=== PATIENT | female | born 1970 | race Hispanic/Latino ===

== ENCOUNTER 2017-04-16 23:29 | Emergency (ER) | payer SELFPAY ==
[2017-04-17 00:38] LABS: BASOPHILS % (AUTO) 0.4 % (0.0-5.0); EOSINOPHILS % (AUTO) 1.9 % (0.0-8.0); HEMATOCRIT 34.5 % (36-48); LYMPHOCYTES % (AUTO) 15.8 % (21.0-51.0); MEAN CORPUSCULAR HEMOGLOBIN 27.2 pg (27.0-33.0); MEAN CORPUSCULAR HGB CONC 33.6 g/dL (32.0-36.0); MONOCYTES % (AUTO) 4.2 % (3.0-13.0); NEUTROPHILS % (AUTO) 77.7 % (40.0-77.0); PLATELET COUNT (AUTO) 300 K/uL (130-400); RED BLOOD CELL COUNT(AUTO) 4.26 MIL/uL (4.00-5.50); RED CELL DISTRIBUTION WIDTH 13.9 % (11.0-15.5); WHITE BLOOD COUNT (AUTO) 8.9 K/uL (4.8-10.8)
[2017-04-17 00:47] LABS: CREATININE 0.6 mg/dL (0.5-1.5); POTASSIUM 3.6 mmol/L (3.5-5.1)
[2017-04-17 00:51] LABS: ALBUMIN 3.4 g/dL (3.5-5.0); BILIRUBIN,TOTAL 0.5 mg/dL (0.2-1.0); TOTAL PROTEIN, SERUM 7.4 g/dL (6.0-8.3)
[2017-04-17] MEDS ORDERED: SODIUM CHLORIDE 0.9% 1000ML 2,000 ML IV ONE (00:51)
[2017-04-17] MEDS ORDERED: DICYCLOMINE HCL 10 MG/ML 2ML AMP IM ONE (00:52)
[2017-04-17] MEDS ORDERED: ONDANSETRON HCL 4 MG/2 ML VIAL ONE (01:01)
== END 2017-04-17 05:45 | disposition home or self-care (01) ==
LOC: EDH 23:29
DX: R10.13 Epigastric pain (principal); R19.7 Diarrhea, unspecified; R11.0 Nausea; E78.5 Hyperlipidemia, unspecified; I10 Essential (primary) hypertension; Z79.899 Other long term (current) drug therapy; Z98.890 Other specified postprocedural states
CPT/HCPCS: 36415; 80053; 82150; 83690; 85025; 87046; 87205; 93005; 96361; 96372; 96374; 99285; J0500; J2405; J7030

== ENCOUNTER 2021-06-18 11:04 | Emergency (ER) | payer OTHER ==
[~2021-06-18] VITALS: Ht 152.4 cm; Wt 68.0 kg
[2021-06-18] MEDS ORDERED: NAPR-1196 PO (12:46)
[2021-06-18 13:26] VITALS: BP 135/74
== END 2021-06-18 13:27 | disposition home or self-care (01) ==
LOC: EDH 11:04
DX: S09.93XA Unspecified injury of face, initial encounter (principal); E11.9 Type 2 diabetes mellitus without complications; I10 Essential (primary) hypertension; W18.39XA Other fall on same level, initial encounter; Y93.89 Activity, other specified; Y92.89 Other specified places as the place of occurrence of the external cause; Y99.8 Other external cause status
CPT/HCPCS: 70150

== ENCOUNTER 2021-10-08 17:06 | Emergency (ER) | payer OTHER, SELFPAY ==
[~2021-10-08] VITALS: Ht 152.4 cm; Wt 68.9 kg
[~2021-10-08 17:06] MED LIST: NAPR-1196 PO
[2021-10-08 17:11] VITALS: BP 143/73
[2021-10-08] MEDS ORDERED: ACET-66 PO (18:31)
[2021-10-08] MEDS: ACETAMINOPHEN 500 MG TABLET PO ONE (18:42)
[2021-10-08] MEDS: ACETAMINOPHEN 500 MG TABLET ONE (18:42)
== END 2021-10-08 19:04 | disposition home or self-care (01) ==
LOC: EDH 17:06
DX: M25.561 Pain in right knee (principal); E11.9 Type 2 diabetes mellitus without complications; I10 Essential (primary) hypertension; Z79.1 Long term (current) use of non-steroidal anti-inflammatories (NSAID); Z90.721 Acquired absence of ovaries, unilateral
CPT/HCPCS: 73562

== ENCOUNTER 2022-12-04 21:18 | Emergency (ER) | payer BC ==
[~2022-12-04] VITALS: Ht 165.1 cm; Wt 73.3 kg
[~2022-12-04 21:18] MED LIST changes: +ACET-66 PO
[2022-12-04] MEDS ORDERED: 0.9%NACL 1000ML 1,000 ML IV STA (21:34)
[2022-12-04 21:48] LABS: APPEARANCE,URINE CLEAR (CLEAR); BILIRUBIN,URINE NEGATIVE (NEGATIVE); COLOR,URINE LIGHT-YELLOW (YELLOW); GLUCOSE, URINE (UA) NEGATIVE (NEGATIVE); KETONES,URINE NEGATIVE (NEGATIVE); LEUKOCYTE ESTERASE ,URINE 25 Leu/uL (NEGATIVE); NITRATE,URINE NEGATIVE (NEGATIVE); PROTEIN,URINE 20 mg/dL (NEGATIVE); UROBILINOGEN,URINE 0.2 mg/dL (0.2-1.0)
[2022-12-04 21:49] LABS: ADD UA MICROSCOPIC YES
[2022-12-04 21:50] LABS: BACTERIA,URINE RARE /HPF (None Seen); MUCUS,URINE RARE LPF (None Seen); OTHER CASTS, URINE 1 /LPF (None Seen); SQUAMOUS EPITHELIAL CELL,UR FEW /HPF (0-2)
[2022-12-04 21:51] LABS: HCG,QUALITATIVE URINE NEGATIVE (NEGATIVE)
[2022-12-04] MEDS ORDERED: METOCLOPRAMIDE 10 MG/2 ML VIAL IVP ONE (22:00)
[2022-12-04] MEDS ORDERED: LIDOCAINE HCL 2% VISCOUS 15 ML UDCUP PO ONE (22:00)
[2022-12-04] MEDS ORDERED: MAG/ALUM/SIMETH 30 ML UDCUP PO ONE (22:00)
[2022-12-04] MEDS ORDERED: FAMOTIDINE 20MG VIAL IV ONE (22:00)
[2022-12-04 22:09] LABS: BASOPHILS # (AUTO) 0.04 K/uL (0.00-0.20); BASOPHILS % (AUTO) 0.3 % (0.0-5.0); EOSINOPHILS # (AUTO) 0.18 K/uL (0.00-0.70); EOSINOPHILS % (AUTO) 1.5 % (0.0-8.0); HEMATOCRIT 38.4 % (36-48); IMMATURE GRANULOCYTE ABSOLUTE 0.04 K/uL (0-1); LYMPHOCYTES # (AUTO) 4.2 K/uL (1.0-4.8); LYMPHOCYTES % (AUTO) 35.1 % (21.0-51.0); MEAN CORPUSCULAR HEMOGLOBIN 27.7 pg (27.0-33.0); MEAN CORPUSCULAR HGB CONC 32.3 g/dL (32.0-36.0); MEAN CORPUSCULAR VOLUME 85.9 fL (79-99); MONOCYTES # (AUTO) 0.7 K/uL (0.1-1.0); NEUTROPHILS # (AUTO) 6.9 K/uL (1.8-7.7); NEUTROPHILS % (AUTO) 56.8 % (40.0-77.0); PLATELET COUNT (AUTO) 328 K/uL (130-400); RED BLOOD CELL COUNT(AUTO) 4.47 MIL/uL (4.00-5.50); RED CELL DISTRIBUTION WIDTH 13.4 % (11.0-15.5); WHITE BLOOD COUNT (AUTO) 12.1 K/uL (4.8-10.8)
[2022-12-04 22:30] LABS: CREATININE 0.7 mg/dL (0.5-1.5); POTASSIUM 4.1 mmol/L (3.5-5.1)
[2022-12-04 22:33] LABS: ALBUMIN 3.6 g/dL (3.5-5.0); BILIRUBIN,TOTAL 0.2 mg/dL (0.2-1.0); TOTAL PROTEIN, SERUM 7.6 g/dL (6.0-8.3)
[2022-12-04] MEDS ORDERED: CEPH500B PO (23:43)
[2022-12-04] MEDS ORDERED: PANT40TA PO (23:43)
[2022-12-04] MEDS ORDERED: METO-296 PO (23:43)
[2022-12-04 23:51] VITALS: BP 126/78; PULSE 84; RESP 16; O2SAT 98
[2022-12-05] MEDS ORDERED: CEFTRIAXONE 2GM VIAL IVPB ONE
== END 2022-12-05 00:44 | disposition home or self-care (01) ==
LOC: EDH 21:18
DX: K21.9 Gastro-esophageal reflux disease without esophagitis (principal); N39.0 Urinary tract infection, site not specified; E11.9 Type 2 diabetes mellitus without complications; E78.00 Pure hypercholesterolemia, unspecified; I10 Essential (primary) hypertension
CPT/HCPCS: 99284; 96365; 96375; 82550; 84484; 80053; 83690; 85025; 81001; 81025; 36415; 93005; J3490; J7030; J0696; J2765

== ENCOUNTER 2023-06-20 02:31 | Emergency (ER) | payer BC ==
[~2023-06-20] VITALS: Ht 152.4 cm; Wt 70.8 kg
[~2023-06-20 02:31] MED LIST changes: +CEPH500B PO; +METO-296 PO; +PANT40TA PO
[2023-06-20 03:40] LABS: ADD UA MICROSCOPIC YES; APPEARANCE,URINE CLEAR (CLEAR); BILIRUBIN,URINE NEGATIVE (NEGATIVE); COLOR,URINE LIGHT-YELLOW (YELLOW); GLUCOSE, URINE (UA) NEGATIVE (NEGATIVE); KETONES,URINE NEGATIVE (NEGATIVE); LEUKOCYTE ESTERASE ,URINE NEGATIVE Leu/uL (NEGATIVE); NITRATE,URINE NEGATIVE (NEGATIVE); OCCULT BLOOD,URINE SMALL (NEGATIVE); PROTEIN,URINE 10 mg/dL (NEGATIVE); UROBILINOGEN,URINE 0.2 mg/dL (0.2-1.0)
[2023-06-20 03:41] LABS: MUCUS,URINE RARE LPF (None Seen); SQUAMOUS EPITHELIAL CELL,UR RARE /HPF (0-2)
[2023-06-20 03:41] LABS: BASOPHILS # (AUTO) 0.03 K/uL (0.00-0.20); BASOPHILS % (AUTO) 0.2 % (0.0-5.0); EOSINOPHILS # (AUTO) 0.14 K/uL (0.00-0.70); EOSINOPHILS % (AUTO) 1.1 % (0.0-8.0); IMMATURE GRANULOCYTE ABSOLUTE 0.05 K/uL (0-1); LYMPHOCYTES # (AUTO) 1.6 K/uL (1.0-4.8); LYMPHOCYTES % (AUTO) 12.2 % (21.0-51.0); MEAN CORPUSCULAR HEMOGLOBIN 27.5 pg (27.0-33.0); MEAN CORPUSCULAR VOLUME 83.5 fL (79-99); MONOCYTES # (AUTO) 0.8 K/uL (0.1-1.0); MONOCYTES % (AUTO) 5.9 % (3.0-13.0); NEUTROPHILS # (AUTO) 10.4 K/uL (1.8-7.7); NEUTROPHILS % (AUTO) 80.2 % (40.0-77.0); PLATELET COUNT (AUTO) 293 K/uL (130-400); RED BLOOD CELL COUNT(AUTO) 4.43 MIL/uL (4.00-5.50); RED CELL DISTRIBUTION WIDTH 13.4 % (11.0-15.5)
[2023-06-20] MEDS: MAG/ALUM/SIMETH 30 ML UDCUP PO ONE (04:00)
[2023-06-20 04:01] LABS: CREATININE 0.6 mg/dL (0.5-1.0); POTASSIUM 4.5 mmol/L (3.5-5.1)
[2023-06-20] MEDS: LIDOCAINE HCL 2% VISCOUS 15 ML UDCUP PO ONE (04:01)
[2023-06-20 04:06] LABS: ALBUMIN 3.4 g/dL (3.5-5.0); BILIRUBIN,TOTAL 0.4 mg/dL (0.2-1.0); TOTAL PROTEIN, SERUM 7.6 g/dL (6.0-8.3)
[2023-06-20] MEDS ORDERED: PANT40TA PO (04:48)
[2023-06-20] MEDS ORDERED: MAG-55 PO (04:48)
[2023-06-20 05:03] VITALS: BP 113/61; PULSE 72; RESP 18; O2SAT 99
== END 2023-06-20 05:05 | disposition home or self-care (01) ==
LOC: EDH 02:31
DX: K29.70 Gastritis, unspecified, without bleeding (principal); E11.9 Type 2 diabetes mellitus without complications; E78.00 Pure hypercholesterolemia, unspecified; I10 Essential (primary) hypertension; Z79.899 Other long term (current) drug therapy
CPT/HCPCS: 36415; 80053; 81001; 83690; 84484; 85025

== ENCOUNTER 2024-01-11 16:17 | Emergency (ER) | payer BC ==
[~2024-01-11] VITALS: Ht 152.4 cm; Wt 74.8 kg
[~2024-01-11 16:17] MED LIST changes: -CEPH500B PO; +MAG-55 PO; -NAPR-1196 PO
[2024-01-11 17:23] LABS: BASOPHILS # (AUTO) 0.03 K/uL (0.00-0.20); BASOPHILS % (AUTO) 0.2 % (0.0-5.0); EOSINOPHILS # (AUTO) 0.08 K/uL (0.00-0.70); EOSINOPHILS % (AUTO) 0.6 % (0.0-8.0); HEMATOCRIT 38.7 % (36-48); IMMATURE GRANULOCYTE ABSOLUTE 0.04 K/uL (0-1); LYMPHOCYTES # (AUTO) 3.4 K/uL (1.0-4.8); LYMPHOCYTES % (AUTO) 25.8 % (21.0-51.0); MEAN CORPUSCULAR HEMOGLOBIN 28.1 pg (27.0-33.0); MEAN CORPUSCULAR HGB CONC 32.8 g/dL (32.0-36.0); MEAN CORPUSCULAR VOLUME 85.6 fL (79-99); MONOCYTES # (AUTO) 0.5 K/uL (0.1-1.0); MONOCYTES % (AUTO) 3.8 % (3.0-13.0); NEUTROPHILS % (AUTO) 69.3 % (40.0-77.0); PLATELET COUNT (AUTO) 328 K/uL (130-400); RED BLOOD CELL COUNT(AUTO) 4.52 MIL/uL (4.00-5.50); RED CELL DISTRIBUTION WIDTH 13.5 % (11.0-15.5)
[2024-01-11 17:32] LABS: CARBON DIOXIDE 27 mmol/L (21-32); CHLORIDE 105 mmol/L (101-111); CREATININE 0.5 mg/dL (0.5-1.0); GLOMERULAR FILTR. RATE CALC 111 mL/min (>90); GLUCOSE,RANDOM 102 mg/dL (70-105); POTASSIUM 3.8 mmol/L (3.5-5.1); SODIUM SERUM 144 mmol/L (136-145); UREA NITROGEN, BLOOD 11 mg/dL (7-18)
[2024-01-11 17:41] LABS: ALANINE AMINOTRANSFERASE 35 U/L (12-78); ALBUMIN 3.8 g/dL (3.5-5.0); ASPARTATE AMINOTRANSFERASE 25 U/L (10-37); BILIRUBIN,DIRECT < 0.1 mg/dL (0.0-0.3); BILIRUBIN,TOTAL 0.1 mg/dL (0.2-1.0); TOTAL PROTEIN, SERUM 8.2 g/dL (6.0-8.3)
[2024-01-11 17:57] VITALS: BP 152/84; PULSE 74; RESP 20; TEMP 98; O2SAT 97
[2024-01-11] MEDS: 0.9%NACL 1000ML 1,000 ML IV ONE (18:12)
[2024-01-11] MEDS: MAG/ALUM/SIMETH 30 ML UDCUP PO ONE (18:12)
[2024-01-11] MEDS: FAMOTIDINE 20MG VIAL IV ONE (18:12)
--- NOTE | 2024-01-11 18:25 | ERN ---
General Chief Complaint: Abdominal Pain Stated Complaint: ABDOMINAL PAIN Time Seen by MD: 16:57 Time Seen by Midlevel: 16:57 Source: patient History of Present Illness Initial Comments Patient is a 53-year-old female presenting to the emergency department with sudden onset of abdominal pain that started approximately 40 minutes prior to arrival. Patient reports similar episodes in the past and has been told it was gastritis. She saw her primary care doctor for this who referred her to a lean specialist who scheduled her for colonoscopy/endoscopy. She had to get cardiology clearance and she just received her clearance earlier this week. She is now pending an appointment for her endoscopy/colonoscopy. She specifically denies any diarrhea, bloody stools, hematemesis, fever, chills, or any other symptoms at this time. Allergies: Coded Allergies: No Known Allergies (Unverified Allergy, Unknown, 06/18/21) Home Meds Active Scripts Pantoprazole Sodium (Protonix) 40 Mg Tablet.dr, 40 MG PO DAILYBKFST, #30 TAB Prov:WAQAR SANTIAGO MD 06/20/23 Mag Hydrox/Al Hydrox/Simeth (Maalox Maximum Strength Susp) 400 Mg-400 Mg-40 Mg/5 Ml Oral.susp, 30 ML PO TIDAC, #300 ML Prov:WAQAR SANTIAGO MD 06/20/23 Metoclopramide HCl (Reglan) 10 Mg Tablet, 10 MG PO QID, #120 TAB 2 Refills Prov:SHA PULIDO Sr., MD 12/04/22 Acetaminophen (Tylenol) 500 Mg Tab, 500 MG PO Q4PRN, #30 TAB Prov:MUNIR KAY 10/08/21 Past Medical History Past Medical History: Arthritis, Diabetes-Type II, High Cholesterol, Hypertension, Other Medical History Other: HX OF GASTRITIS Past Surgical History: Unknown Surgical History Other: OVARIAN CYST REMOVAL LEFT Family History Family History: Negative Social History Social History: Negative, Lives with family ROS Dictation CONSTITUTIONAL: Negative except for HPI HEAD/FACE: Negative except for HPI EENT: Negative except for HPI RESPIRATORY: Negative except for HPI GASTROINTESTINAL/ABDOMINAL: Negative except for HPI GENITOURINARY: Negative except for HPI MUSCULOSKELETAL: Negative except for HPI INTEGUMENTARY: Negative except for HPI NEUROLOGICAL/PSYCH: Negative except for HPI HEMATOLOGIC/LYMPHATIC: Negative except for HPI All Systems Negative, Except as noted above. 13 point review of systems assessed and all negative except for above. Physical Exam Physical Exam Dictation Vital Signs reviewed General Appearance: Alert, oriented x 3, no acute distress, well developed, nourished. Head and Face: non-traumatic. Eyes: PERRL, pink conjunctivas, eyelid no trauma, anterior chamber with arcus senilis. Ears: Pinnas intact and no signs of trauma or erythema ear canals clear and no discharge TM no erythema Nose: No discharge, no bleeding. Oropharynx: Mouth normal, tongue pink, pharynx clear,no erythema, tonsils no exudates, no abscesses noted, mucous membrane moist Neck: Supple, non-tender, no thyromegaly, no masses, no JVD, no bruits Breast:Deferred Chest:No tenderness, no crepitus, no paradoxical movement, no retractions Lungs:Clear, well-ventilated, symmetric, no rales, no wheezing, no rhonchi, no stridor, good breath sounds bilaterally Heart: Regular rate, regular rhythm, no murmur, no gallops Vascular: no peripheral edema, Abdomen: Soft, positive bowel sounds, nondistended, no guarding, nontender, no rebound, no masses no hepatomegaly, no splenomegaly, no Dailey's sign, no hernias. Rectal: Deferred Genital: Deferred Neurological: Normal speech, motor function intact, sensory function intact Musculoskeletal: Neck nontender, full range of motion, back nontender, full range of motion, Extremities: nontender, full range of motion Skin: Color pink, dry, no turgor, no rash, no lacerations, no abrasions, no contusions. Lymphatic: Deferred Results Laboratory and Microbiology Lab and Micro Result Laboratory Tests Test 01/11/24 16:42 White Blood Count 13.0 K/uL (4.8-10.8) H Red Blood Count 4.52 MIL/uL (4.00-5.50) Hemoglobin 12.7 g/dL (12.0-16.0) Hematocrit 38.7 % (36-48) Mean Corpuscular Volume 85.6 fL (79-99) Mean Corpuscular Hemoglobin 28.1 pg (27.0-33.0) Mean Corpuscular Hemoglobin Concent 32.8 g/dL (32.0-36.0) Red Cell Distribution Width 13.5 % (11.0-15.5) Platelet Count 328 K/uL (130-400) Mean Platelet Volume 10.2 fL (7.5-10.5) Immature Granulocyte % (Auto) 0.3 % (0-1) Neutrophils (%) (Auto) 69.3 % (40.0-77.0) Lymphocytes (%) (Auto) 25.8 % (21.0-51.0) Monocytes (%) (Auto) 3.8 % (3.0-13.0) Eosinophils (%) (Auto) 0.6 % (0.0-8.0) Basophils (%) (Auto) 0.2 % (0.0-5.0) Neutrophils # (Auto) 9.0 K/uL (1.8-7.7) H Lymphocytes # (Auto) 3.4 K/uL (1.0-4.8) Monocytes # (Auto) 0.5 K/uL (0.1-1.0) Eosinophils # (Auto) 0.08 K/uL (0.00-0.70) Basophils # (Auto) 0.03 K/uL (0.00-0.20) Absolute Immature Granulocyte (auto 0.04 K/uL (0-1) Nucleated Red Blood Cells 0.0 % (0.0-0.19) Sodium Level 144 mmol/L (136-145) Potassium Level 3.8 mmol/L (3.5-5.1) Chloride Level 105 mmol/L (101-111) Carbon Dioxide Level 27 mmol/L (21-32) Blood Urea Nitrogen 11 mg/dL (7-18) Creatinine 0.5 mg/dL (0.5-1.0) Glomerular Filtration Rate Calc 111 mL/min (>90) Random Glucose 102 mg/dL (70-105) Total Calcium 8.8 mg/dL (8.5-10.1) Total Bilirubin 0.1 mg/dL (0.2-1.0) L Direct Bilirubin < 0.1 mg/dL (0.0-0.3) Aspartate Amino Transf (AST/SGOT) 25 U/L (10-37) Alanine Aminotransferase (ALT/SGPT) 35 U/L (12-78) Alkaline Phosphatase 81 U/L (50-136) Troponin I High Sensitivity < 4 ng/L (4-50) L Total Protein 8.2 g/dL (6.0-8.3) Albumin 3.8 g/dL (3.5-5.0) Lipase 31 U/L (16-77) Labs Reviewed?: Yes MDM MDM: Patient is a 53-year-old female presenting to the emergency department with sudden onset of abdominal pain that started approximately 40 minutes prior to arrival. Patient reports similar episodes in the past and has been told it was gastritis. She saw her primary care doctor for this who referred her to a lean specialist who scheduled her for colonoscopy/endoscopy. She had to get cardiology clearance and she just received her clearance earlier this week. She is now pending an appointment for her endoscopy/colonoscopy. She specifically denies any diarrhea, bloody stools, hematemesis, fever, chills, or any other symptoms at this time. On physical examination patient is in no acute distress. There is some mild midepigastric abdominal tenderness with no rebound or guarding. Patient is afebrile and nontoxic appearing. She does report having three episodes of emesis prior to arrival however this is subjective. Her CBC shows slight leukocytosis however the remainder of her blood work is unremarkable. The leukocytosis could be a stress reaction to her episodes of vomiting. She was given IV fluids Zofran and Pepcid and she states her symptoms have completely resolved. I did offer a CT scan for further evaluation however patient refuses at this time stating that she does not want to be exposed to all that radiation if she does not need it. She was advised to keep her appointment with her primary care doctor and lean specialist for outpatient endoscopy/colonoscopy. If she develops any new or worsening symptoms she was advised to report to the ER for further evaluation. Differential diagnosis: Gastritis, gastroenteritis, cholecystitis, pancreatitis There are no social concerns with this patient. Prescription drug management Prescriptions will include: Zofran, Pepcid Medical management and examination interpretation discussions were had by me with other qualified healthcare professionals as indicated for the patient's care. ED Course Orders Procedure Category Date Status Time Cbc With Differential LAB 01/11/24 Complete 16:31 Troponin I High LAB 01/11/24 Complete Sensitivity 16:31 Urinalysis Profile LAB 01/11/24 Logged 16:31 Lipase LAB 01/11/24 Complete 16:31 Basic Metabolic Panel LAB 01/11/24 Complete 16:31 Hepatic Function Panel LAB 01/11/24 Complete 16:31 Famotidine 20mg Vial PHA 01/11/24 Complete (Pepcid 20mg Vial) 17:00 Mag/Alum/Simeth 30ml PHA 01/11/24 Complete (Maalox Plus 30ml) 17:00 0.9%Nacl 1000ml (Ns PHA 01/11/24 Complete 1000ml) 17:00 Current Medications Medications (Trade) Dose Ordered Sig/Yaw Route PRN Reason Start Time Stop Time Status Last Admin Dose Admin Al Hydroxide/Mg Hydroxide (MAALox PLUS 30ML) 30 ml ONCE ONCE PO 01/11/24 17:00 01/11/24 17:01 DC 01/11/24 18:12 Famotidine (Pepcid 20mg Vial) 20 mg ONCE ONCE IV 01/11/24 17:00 01/11/24 17:01 DC 01/11/24 18:12 Sodium Chloride 1,000 ml @ 0 mls/hr ONCE ONCE IV 01/11/24 17:00 01/11/24 17:01 DC 01/11/24 18:12 Vital Signs Date Time Temp Pulse Resp B/P (MAP) Pulse Ox O2 Delivery O2 Flow Rate FiO2 01/11/24 17:57 98.1 74 20 152/84 97 Room Air* 0 21 01/11/24 16:25 99.0 74 20 152/84 97 Room Air DX & DISP Disposition: Discharge Departure Impression: Primary Impression: Gastritis Condition: Stable Scripts Famotidine (Pepcid) 20 Mg Tablet 1 TAB PO DAILY for 7 Days, #7 TAB 0 Refills Prov: ERWIN HANSON 01/11/24 Ondansetron (Ondansetron Odt) 4 Mg Tab.rapdis 4 MG PO BID for 7 Days, #14 TAB Prov: ERWIN HANSON 01/11/24 Additional Instructions: Your blood work today is stable. Please follow up with your primary care doctor in 2-3 days for repeat evaluation . Please keep appointment with your lean specialist for endoscopy/colonoscopy. If your symptoms do not improve or get worse please return to the emergency department for repeat evaluation. Referrals: ELIGIO CANTU DO (PCP) Time of Disposition: 19:14 I have reviewed the case, and I agree with, Diagnosis and Plan I performed the substantive portion of the visit. I have reviewed and personally made and approve the management plan that is documented in the note by myself or the INDIO. I acknowledge for responsibility for the patient's management plan. ERWIN HANSON Jan 11, 2024 18:25
[2024-01-11] MEDS ORDERED: FAMO-136 PO (19:15)
[2024-01-11] MEDS ORDERED: ONDA-243 PO (19:15)
== END 2024-01-11 19:58 | disposition home or self-care (01) ==
LOC: EDH 16:17
DX: K29.70 Gastritis, unspecified, without bleeding (principal); E11.9 Type 2 diabetes mellitus without complications; E78.00 Pure hypercholesterolemia, unspecified; I10 Essential (primary) hypertension; M19.90 Unspecified osteoarthritis, unspecified site; Z79.899 Other long term (current) drug therapy; Z98.890 Other specified postprocedural states
CPT/HCPCS: 99284; 96374; 80076; 84484; 80048; 83690; 85025; 36415; J3490; J7030